=== PATIENT | female | born 1990 | race American Indian/Alaskan Native ===

== ENCOUNTER 2018-12-23 07:05 | Emergency (ER) | payer MEDICAID ==
[~2018-12-23] VITALS: Ht 160 cm; Wt 98.9 kg
[2018-12-23 08:40] VITALS: Ht 160 cm; Wt 98.9 kg
[2018-12-23 10:32] VITALS: BP 148/95
== END 2018-12-23 11:17 | disposition home or self-care (01) ==
LOC: ED 07:05
DX: J02.9 Acute pharyngitis, unspecified (principal); R51 Headache; Z90.89 Acquired absence of other organs
CPT/HCPCS: J1100

== ENCOUNTER 2019-03-21 06:35 | Emergency (ER) | payer MEDICAID ==
[~2019-03-21] VITALS: Ht 160 cm; Wt 99.6 kg
[2019-03-21 06:47] VITALS: BP 158/104; Ht 160 cm; Wt 99.6 kg
== END 2019-03-21 07:49 | disposition home or self-care (01) ==
LOC: ED 06:35
DX: J06.9 Acute upper respiratory infection, unspecified (principal); Z90.89 Acquired absence of other organs